=== PATIENT | male | born 1995 | race Caucasian/White ===

== ENCOUNTER → 2017-09-29 | Outpatient (REF) | payer OTHER, MEDICAID | LOC: M SFHCLERA 19:56 | DX: J02.9 Acute pharyngitis, unspecified (principal) ==

== ENCOUNTER → 2018-06-17 | Outpatient (REF) | payer OTHER, MEDICAID | LOC: M SFHCLERA 15:08 | PROVIDERS: ATTEND Physician Assistant | DX: R50.9 Fever, unspecified (principal) ==